=== PATIENT | female | born 1975 | race Caucasian/White ===

== ENCOUNTER 2021-12-09 17:31 | Observation (INO) ==
[2021-12-09] MEDS ORDERED: Melatonin 3 MG TABLET PO PRN (20:48)
[2021-12-09] MEDS ORDERED: Acetaminophen 325 MG TABLET PO PRN (20:48)
[2021-12-09] MEDS ORDERED: Naloxone 0.4 MG/ML INJ IVP PRN (20:48)
[2021-12-09] MEDS ORDERED: Ondansetron 4 MG/2 ML VIAL IVP PRN (20:48)
[2021-12-09] MEDS: 0.9 % Sodium Chloride 1,000 ML IVC SCH (23:08)
[2021-12-10] MEDS ORDERED: Piperacillin/Tazobactam 3.375 GM in 0.9 % Sodium Chloride Mini Bag 100 ML IVPB SCH ×2 (05:30→14:00)
[2021-12-10 05:46] LABS: Basophils % 0.3 %; Eosinophils # 0.2 K/mcL (0.0-0.6); Eosinophils % 1.2 %; Hematocrit 41.5 % (35.3-44.9); Hemoglobin 13.5 g/dL (11.5-15.4); Immature Granulocytes % 0.3 % (0-4); Lymphocytes # 2.7 K/mcL (0.6-4.6); Mean Corpuscular HGB Conc 32.5 g/dL (31.6-35.5); Mean Corpuscular Hemoglobin 29.1 pg (28.0-33.3); Mean Corpuscular Volume 89.4 fL (83.0-100.0); Mean Platelet Volume 10.3 fL (9.4-12.4); Monocytes # 0.9 K/mcL (0.0-1.3); Monocytes % 6.5 %; Neutrophils # 9.2 K/mcL (1.6-8.9); Platelet Count 215 K/mcL (140-400); Red Blood Count 4.64 M/mcL (3.82-4.97); Red Cell Distribution Width 14.2 % (11.5-14.5); Segmented Neutrophils % 70.7 %
[2021-12-10 05:55] LABS: Prothrombin Time 11.6 Seconds (9.4-12.1)
[2021-12-10] MEDS: 0.9 % Sodium Chloride 1,000 ML IVC SCH (07:40)
[2021-12-10 07:43] LABS: Alanine Aminotransferase 17 Units/L (7-52); Albumin 3.5 g/dL (3.5-5.7); Albumin/Globulin Ratio 1.5 (1.1-2.2); Alkaline Phosphatase 86 Units/L (34-104); Aspartate Amino Transferase 17 Units/L (13-39); BUN/Creatinine Ratio 14 (6-26); Bilirubin,Total 0.5 mg/dL (0.3-1.0); Blood Urea Nitrogen 9 mg/dL (6-20); Carbon Dioxide 24 mEq/L (23-29); Chloride 107 mEq/L (98-107); Globulin 2.3 g/dL (2.4-3.5); Glucose 85 mg/dL (70-105); Magnesium 1.8 mg/dL (1.6-2.6); Osmolality,Calculated 282 (280-300); Phosphorous 3.6 mg/dL (2.7-4.5); Potassium 3.5 mEq/L (3.5-5.1); Sodium 137 mEq/L (136-145); Total Protein 5.8 g/dL (6.4-8.9); eGFR For African Americans > 60 (> 60); eGFR For Non-African Americans > 60 (> 60)
[2021-12-10] MEDS ORDERED: Isovue-300 50ML VIAL ONE (12:03)
[2021-12-10] MEDS ORDERED: *HR* FentaNYL (PF) 100 MCG/2 ML VIAL ONE (12:20)
[2021-12-10] MEDS ORDERED: *HR* Propofol 200 MG/20 ML VIAL IVP ONE (12:20)
[2021-12-10] MEDS ORDERED: *HR* Labetalol 20 MG/4 ML SYRINGE IVP PRN (12:21)
[2021-12-10] MEDS ORDERED: *HR* OxyCODONE Immed Rel 5 MG TABLET PO PRN (12:21)
[2021-12-10] MEDS ORDERED: Acetaminophen IV 1,000 MG/100 ML BAG IVPB PRN (12:21)
[2021-12-10] MEDS ORDERED: Lidocaine -MPF 2% 5 ML VIAL ONE (12:21)
[2021-12-10] MEDS ORDERED: Ondansetron 4 MG/2 ML VIAL ONE (12:21)
[2021-12-10] MEDS ORDERED: Promethazine 6.25 MG in Water for inj. (sterile) 20 ML IVPB PRN (12:21)
[2021-12-10] MEDS ORDERED: *HR* HYDROmorphone PF 0.5 MG/0.5 ML SYRINGE IVP PRN (12:21)
[2021-12-10] MEDS ORDERED: Ketorolac 30 MG/ML VIAL ONE (13:43)
[2021-12-10] MEDS ORDERED: Acetaminophen IV 1,000 MG/100 ML BAG IVPB ONE (14:00)
[2021-12-10] MEDS ORDERED: Naloxone 0.4 MG/ML INJ IVP PRN (14:52)
[2021-12-10] MEDS ORDERED: Acetaminophen 325 MG TABLET PO PRN (14:52)
[2021-12-10] MEDS ORDERED: Ondansetron 4 MG/2 ML VIAL IVP PRN (14:52)
[2021-12-10] MEDS ORDERED: Melatonin 3 MG TABLET PO PRN (14:52)
[2021-12-10] MEDS ORDERED: *HR* Belladonna Alkaloids/Opium 30 MG RECTAL SUPPOSITORY RC PRN (14:52)
[2021-12-10] MEDS ORDERED: Ketorolac 30 MG/ML VIAL IVP PRN (14:52)
[2021-12-10] MEDS: Piperacillin/Tazobactam 3.375 GM in 0.9 % Sodium Chloride Mini Bag 100 ML IVPB SCH (21:59)
[2021-12-11] MEDS: Piperacillin/Tazobactam 3.375 GM in 0.9 % Sodium Chloride Mini Bag 100 ML IVPB SCH (05:31)
[2021-12-11 07:33] VITALS: BP 139/87; PULSE 66; TEMP 97.7; O2SAT 97
== END 2021-12-11 12:14 | disposition home or self-care (01) ==
LOC: 3ANU
PROVIDERS: ADMIT Internal Medicine; ATTEND Internal Medicine